=== PATIENT | female | born 1950 | race Caucasian/White ===

== ENCOUNTER → 2023-05-30 12:34 | Outpatient (REF) | payer MEDICARE, SELFPAY | LOC: WDC 12:34 | PROVIDERS: ATTENDING PHYSICIAN Family Medicine | DX: Z12.31 Encounter for screening mammogram for malignant neoplasm of breast (principal) | CPT/HCPCS: 77063; 77067 ==

== ENCOUNTER → 2024-06-13 12:46 | Outpatient (REF) | payer MEDICARE, SELFPAY | LOC: WDC 12:46 | PROVIDERS: ATTENDING PHYSICIAN Family Medicine | DX: Z12.31 Encounter for screening mammogram for malignant neoplasm of breast (principal) | CPT/HCPCS: 77063; 77067 ==

== ENCOUNTER → 2025-02-08 10:27 | Outpatient (REF) | payer MEDICARE, SELFPAY | LOC: RAD 10:27 | PROVIDERS: ATTENDING PHYSICIAN Physician Assistant Surgical; FAMILY PHYSICIAN Family Medicine | DX: Z96.652 Presence of left artificial knee joint (principal) | CPT/HCPCS: 78315; A9503 ==